=== PATIENT | male | born 1980 | race Caucasian/White ===

== ENCOUNTER 2023-09-13 16:30 | Outpatient (CLI) | payer BC, SELFPAY | END 2023-09-13 16:31 | disposition home or self-care (01) | LOC: NFLDREF 16:33 | PROVIDERS: PCP Internal Medicine; Visit Provider Internal Medicine | DX: R10.9 Unspecified abdominal pain (principal) | CPT/HCPCS: 80053 ==

== ENCOUNTER 2023-09-19 14:18 | Outpatient (CLI) | payer BC, SELFPAY ==
--- NOTE | 2023-09-19 15:00 | CRLHL7_ITS ---
For Patients: As a result of the Century Cures Act, medical imaging exams and procedure reports are released immediately into your electronic medical record. You may view this report before your referring provider. If you have questions, please contact your health care provider. Indication: ABD PAIN. POSSIBLE HERNIA. PT DID VALSALVA MANEUVER Technique: CT abdomen/pelvis with IV contrast, 84 mL Isovue 370 Comparison: None Findings: Lower thorax: Calcified granuloma in the right lower lobe; otherwise, unremarkable. Abdomen/pelvis: The liver, gallbladder and biliary system, spleen, pancreas, adrenal glands, kidneys, ureters, seminal vesicles, prostate, and visualized external genitalia are within normal limits. Calcified granulomas in the spleen, likely sequela of remote granulomatous disease. There is no evidence of bowel obstruction or inflammation. The appendix is not discretely visualized; however, there are no inflammatory changes in the right lower quadrant to suggest acute appendicitis. No free fluid or free air. No abscess. No pathologically enlarged lymph nodes throughout the abdomen or pelvis. The vasculature is normal in appearance. There is contrast mixing artifact seen in the main veins of the pelvis. Soft tissue/musculoskeletal: There is a small fat containing umbilical hernia measuring approximally 1.4 centimeters AP by 1.8 centimeters transverse with neck measuring approximately 0.6 centimeters. No fat stranding or free fluid within the hernia to suggest strangulation. The osseous structures are unremarkable. Impression: 1. No CT evidence of an acute process involving the abdomen or pelvis. 2. Small fat containing umbilical hernia as detailed above. Please note that all CT scans at this facility use dose modulation, iterative reconstruction, and/or weight-based dosing when appropriate to reduce radiation dose to as low as reasonably achievable. Dictated by Glen Conroy MD @ 09/21/2023 10:18:23 AM (Electronically Signed)
== END 2023-09-19 14:19 | disposition home or self-care (01) ==
LOC: CT 14:20
PROVIDERS: PCP Internal Medicine; Visit Provider Internal Medicine
DX: R10.9 Unspecified abdominal pain (principal); K42.9 Umbilical hernia without obstruction or gangrene
CPT/HCPCS: 74177; Q9967

== ENCOUNTER 2024-01-16 06:09 | Day surgery (SDC) | payer BC, SELFPAY ==
[2024-01-16] VITALS (11 sets, daily range): BP systolic 99–131; BP diastolic 53–83; PULSE 51–73; RESP 16–18; TEMP 36.4–36.7; O2SAT 96–99; BMI 22.9
--- OUTSIDE RECORDS SUMMARY | 2024-01-16 06:11 | XMS_ITS | Clinical Summary ---
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 1 Bottle 0 10/23/2013 Active Active Problems No known active problems Social History Tobacco Use Types Packs/Day Years Used Date Smoking Tobacco: Former Cigarettes Passive Smoke Exposure: Past Smokeless Tobacco: Never Tobacco Cessation:Counseling Given: Not Answered Alcohol Use Standard Drinks/Week Comments Not Asked 0 (1 standard drink = 0.6 oz pur e alcohol) Sex and Gender Information Value Date Recorded Sex Assigned at Not on file Gender Identity Not on file Sexual Orientation Not on file Obstetrics History Last Filed Vital Signs Vital Sign Reading Time Taken Comments Blood Pressure 139/78 08/31/2023 1:11 PM CDT Pulse 82 08/31/2023 1:11 PM CDT Temperature 36.5 ??C (97.7 ??F) 08/31/2023 1:11 PM CD T Respiratory Rate 18 08/31/2023 1:11 PM CDT Oxygen Saturation 97% 08/31/2023 1:11 PM CDT Inhaled Oxygen Concentration - - Weight 77.1 kg (170 lb) 02/15/2023 7:26 PM 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 Height 182.5 cm (5' 11.85) 10/23/2013 3:36 PM C DT Body Mass Index 23.15 10/23/2013 3:36 PM CDT Plan of Treatment Health Maintenance Due Date Last Done Comments Tdap 1992 Depression screening for age 12+ 1993 HIV for age 15-65 1996 BMI (ht and wt on same day) for age 18+ 08/22/1999 Hepatitis C screening for ag e 18-79 08/22/1999 Tetanus booster 2001 Lipids for age 35-44 2016 COVID-19 vaccine series (2023- season) 2023 Influenza for age 9-49 11/12/2023 Pneumococcal series for age 6-64 Aged Out No longer eligible based on patient's age to complete this topic Care Teams Train Brake Operator Relationship Specialty Start Date End Date Pcp, No . PCP - General 03/10/13
[2024-01-16] MEDS: 0.9 % SODIUM CHLORIDE 500 ML 500 ML 100 ML IV (07:04)
[2024-01-16] MEDS: SODIUM CHLORIDE 0.9 % (FLUSH) 10 ML SYRINGE IVF (07:04)
--- NOTE | 2024-01-16 07:22 | W.PM.H&PU ---
History & Physical Update History & Physical Update H&P Reviewed and patient assessed: No changes noted
--- NOTE | 2024-01-16 07:23 | PM.GSPRC ---
Operative Note Date of procedure: 01/16/24 Pre-op diagnosis: 1. Symptomatic umbilical hernia. Post-op diagnosis: Same Type of Procedure: 1. Open umbilical hernia repair without mesh. Indications: 43-year-old male was seen in clinic for evaluation of periumbilical abdominal pain. Patient initially noticed painful episodes during COVID pandemic several years ago. That pain has resolved. Several months ago he developed the pain again. He described it as constant and dull worse with sitting and bending. He stopped exercising and was not doing any strenuous activity to avoid the painful episodes. He had nausea during the painful episodes but denied vomiting. Upon his workup an abdominal CT was obtained that showed a small umbilical hernia. No other intra-abdominal abnormalities were found. On clinical exam at the superior aspect of the umbilicus was a lee sized bulge that was reducible. The size of the fascial defect was difficult to palpate. Patient had discomfort with reducing the hernia. Given patient's clinical history and his physical exam as well as CT findings, an open umbilical hernia repair was recommended. The procedure was discussed in detail. The risks associated procedure including infection, bleeding, injury to intra-abdominal organs, and hernia recurrence were all discussed with the patient, and he agreed to proceed. Procedure Description: After discussing the risks and benefits of the procedure, the patient signed informed consent.? The operative site was marked and the patient was brought to the operating room and placed on the operating table in supine position.? Care was taken to pad the patient's pressure points.?? The patient was then sedated by anesthesia.?? The operative site was then prepped and draped in the usual sterile fashion.? A time-out was then performed. Local anesthetic was injected at the surgical site. A curvilinear skin incision was made with a scalpel just above the umbilicus. Subcutaneous tissue was dissected with electrocautery down to the hernia sac and anterior fascia. The umbilicus was mobilized off the anterior fascia with cautery. The surrounding fascia was strong. I elected to repair this fascial defect with 0-0 Neurolon interrupted stitches. Additional local anesthetic was injected the surgical site. An umbilicus was tacked down to the anterior fascia with interrupted 3-0 Vicryl stitches. Subdermal layer was closed with interrupted sutures using 3-0 Vicryl. Skin was closed with 4-0 Monocryl using subcuticular stitch. Steri strips were applied over the incision. Sterile dressings were placed over the incision. All counts were correct at the end of the case. Patient tolerated the procedure well and was transferred to same-day surgery without any complications. Findings: 7 mm fascial defect repaired without mesh. Anesthesia: MAC and local Surgeon: Masoud Duke MD Estimated blood loss (mL): 2 Condition: stable Disposition: same day
[2024-01-16] MEDS: CEFAZOLIN 1 GM inj IVP (07:32)
[2024-01-16] MEDS: BUPIVACAINE 0.25% 30 ML 10 ML INJECTION (07:37)
[2024-01-16] MEDS: LIDOCAINE 1%-EPI 1:100,000 10 ML INFILTRATI (07:37)
--- NOTE | 2024-01-16 08:16 | W.ANESCHARGE ---
Anesthesia Charges Start Date/Time Anesthesia Start Date: 01/16/24 Anesthesia Start Time: 07:22 Stop Date/Time Anesthesia Stop Date: 01/16/24 Anesthesia Stop Time: 08:16
[2024-01-16] MEDS: ACETAMINOPHEN 325 MG TABLET 650 MG PO (08:59)
--- NOTE | 2024-01-16 13:29 | SUR.OPER ---
PATIENT QUESTIONS ANSWERED SATISFACTORILY PREOPERATIVELY. PATIENT BROUGHT TO OR #1 PER CART. Patient positioned supine on OR #1 bed. The perioperative team supported arms bilaterally on arm boards. Final approval of positioning by surgeon.
== END 2024-01-16 10:28 | disposition home or self-care (01) ==
PROVIDERS: PCP Internal Medicine; Visit Provider Surgery
PROC: (CPT 49591; principal; 2024-01-16 07:30)
DX: K42.9 Umbilical hernia without obstruction or gangrene (principal)
CPT/HCPCS: 49591; 00830; A9270; J0665; J0690; J1100; J1885; J2250; J2405; J2704; J3010; J3490; J7030